=== PATIENT | female | born 1970 | race African-American/Black ===

== ENCOUNTER 2019-11-12 17:57 | Emergency (ER) | payer BC, SELFPAY ==
--- NOTE | 2019-11-12 18:21 | RAD ---
EXAM: Portable chest PROVIDED CLINICAL HISTORY: Cough COMPARISON: None FINDINGS: Cardiac and mediastinal silhouette is within normal limits. No focal consolidation, pleural fluid or pneumothorax evident. IMPRESSION: No evidence for an acute cardiopulmonary process.
[2019-11-12] MEDS ORDERED: Acetaminophen 500 MG TAB ONE ×2 (18:28→18:29)
[2019-11-12 18:37] LABS: #Basophils 0.1 thou/uL (0.0-0.2); #Eosinphils 0.2 thou/uL (0.0-0.7); #Lymphocytes 2.5 thou/uL (1.20-3.40); #Monocytes 0.2 thou/uL (0.11-0.59); #Neutrophils 2.1 thou/uL (1.40-6.50); %Basophils 1.7 % (0.0-1.0); %Eosinophils 3.4 % (0.0-10.0); %Lymphocytes 48.3 % (21.0-51.0); %Monocytes 4.8 % (0.0-10.0); %Neutrophils 41.7 % (42.0-75.0); Hemoglobin 13.8 g/dL (12.0-16.0); Mean Corpuscular HGB CONC 33.5 g/dL (32.0-36.0); Mean Corpuscular Hemoglobin 29.3 pg (27.0-31.0); Mean Corpuscular Volume 87.6 fL (78.0-98.0); Mean Platelet Volume 9.1 fL (7.4-10.4); Platelet Count 229 thou/uL (130-400); RBC Distribution Width 13.7 % (11.5-14.5); Red Blood Cell (RBC) Count 4.72 mill/uL (4.20-5.40); White Blood Cell (WBC) Count 5.1 thou/uL (4.8-10.8)
[2019-11-12 18:50] LABS: ALT (SGPT) 22 U/L (8-55); AST (SGOT) 20 U/L (5-34); Albumin 4.1 g/dL (3.5-5.0); Alkaline Phosphatase 105 U/L (40-110); Anion Gap 14 mmol/L (10-20); BUN (Urea Nitrogen) 17 mg/dL (7.0-18.7); Bilirubin, Total 0.5 mg/dL (0.2-1.2); Calc. Creatinine Clearance 0 mL/min (70-130); Calcium 9.6 mg/dL (7.8-10.44); Carbon Dioxide 26 mmol/L (22-29); Chloride 108 mmol/L (98-107); Estimated GFR-MDRD 71; Globulin 2.6 g/dL (2.4-3.5); Glucose 104 mg/dL (70-105); Potassium 4.3 mmol/L (3.5-5.1); Protein, Total 6.7 g/dL (6.0-8.3); Sodium 144 mmol/L (136-145)
[2019-11-12] MEDS ORDERED: predniSONE 20 MG TAB ONE (19:27)
== END 2019-11-12 20:06 | disposition home or self-care (01) ==
LOC: ERS 17:57
DX: J20.9 Acute bronchitis, unspecified (principal); I10 Essential (primary) hypertension; F41.9 Anxiety disorder, unspecified
CPT/HCPCS: 36415; 71045; 80053; 84484; 85025; 85379; 93005; J7512

== ENCOUNTER 2020-05-23 10:43 | Outpatient (CLI) | payer BC ==
--- NOTE | 2020-05-23 11:15 | RAD ---
LEFT WRIST 3 VIEWS: HISTORY: Left wrist pain, injury FINDINGS: No acute fracture or dislocation is identified. If symptoms do not improve, a follow-up exam should be obtained in 7-10 days.
== END 2020-05-23 10:44 | disposition home or self-care (01) ==
LOC: SCSRAD 10:43
PROVIDERS: ATTEND Nurse Practitioner Family
DX: M25.532 Pain in left wrist (principal)

== ENCOUNTER 2021-05-22 15:12 | Emergency (ER) | payer BC ==
[2021-05-22 15:57] LABS: Hemoglobin 13.5 g/dL (12.0-16.0); Mean Corpuscular HGB CONC 33.9 g/dL (32.0-36.0); Mean Corpuscular Hemoglobin 30.2 pg (27.0-31.0); Mean Corpuscular Volume 89.1 fL (78.0-98.0); Platelet Count 242 thou/uL (130-400); RBC Distribution Width 13.4 % (11.5-14.5); Red Blood Cell (RBC) Count 4.47 mill/uL (4.20-5.40); White Blood Cell (WBC) Count 5.9 thou/uL (4.8-10.8)
[2021-05-22 16:13] LABS: Eosinophils 4 % (0-10); Lymphocytes 42 % (21-51); MDiff Complete? YES; Monocytes 4 % (0-10); Neutrophil 39 % (42-75); Platelet Morphology Comment Appears Adequate; RBC Morphology Normal; Reactive Lymphocytes 11 % (0-10)
[2021-05-22 16:17] LABS: ALT (SGPT) 17 U/L (8-55); AST (SGOT) 23 U/L (5-34); Albumin 3.9 g/dL (3.5-5.0); Alkaline Phosphatase 86 U/L (40-110); Anion Gap 13 mmol/L (10-20); BUN (Urea Nitrogen) 15 mg/dL (7.0-18.7); Bilirubin, Total 0.3 mg/dL (0.2-1.2); Calc. Creatinine Clearance 0 mL/min (70-130); Calcium 9.4 mg/dL (7.8-10.44); Carbon Dioxide 26 mmol/L (22-29); Chloride 103 mmol/L (98-107); Globulin 3.1 g/dL (2.4-3.5); Glucose 74 mg/dL (70-105); Potassium 3.4 mmol/L (3.5-5.1); Sodium 139 mmol/L (136-145)
[2021-05-22 19:16] LABS: Troponin I Less than 0.010 ng/mL (< 0.028)
== END 2021-05-22 20:25 | disposition home or self-care (01) ==
LOC: ERS 15:12
DX: R07.2 Precordial pain (principal); I10 Essential (primary) hypertension; Z79.82 Long term (current) use of aspirin; Z79.899 Other long term (current) drug therapy
CPT/HCPCS: 36415; 71045; 80053; 84484; 85025; 85379; 93005; 94760